=== PATIENT | female | born 1950 | race Caucasian/White ===

== ENCOUNTER 2016-12-13 10:23 | Emergency (ER) | payer OTHER ==
[2016-12-13 10:48] VITALS: BP 130/68
[2016-12-13] MEDS ORDERED: Tetan/Diph/Pertus SYR(Tdap)* 0.5 ML SYR(BOOSTRIX) use SYR IM ONE (11:07)
--- NOTE | 2016-12-13 11:15 | UC ---
General HPI - HPI Summary HPI Summary: fall and trip at the bank. she has contusions of the right right knee and right shoulder as well as right hand laceration. denies numbness. - History of Current Complaint Chief Complaint: UCUpperExtremity Stated Complaint: FALL Time Seen by Provider: 12/13/16 11:02 Hx Obtained From: Patient Onset/Duration: Sudden Onset Timing: Constant Onset Severity: Moderate Current Severity: Mild Associated Signs & Symptoms: Positive: Edema - chronic edema.. Negative: Abdominal Pain, Anticoagulation Therapy, Back Pain, Confusion, Chest Pain, Dizziness - Allergy/Home Medications Allergies/Adverse Reactions: Allergies Allergy/AdvReac Type Severity Reaction Status Date / Time Brompheniramine Allergy Vomiting Verified 06/24/16 14:02 [From Dimetapp] Phenylpropanolamine Allergy Vomiting Verified 06/24/16 14:02 [From Dimetapp] PMH/Surg Hx/FS Hx/Imm Hx Endocrine History Of: Denies: Diabetes, Thyroid Disease, Hyperthyroidism, Hypothyroidism, Dyslipidemia Cardiovascular History Of: Reports: Hypertension Denies: Cardiac Disorders, Pacemaker/ICD, Myocardial Infarction, Congestive Heart Failure, Atrial Fibrillation, Deep Vein Thrombosis, Bleeding Disorders Respiratory History Of: Denies: COPD, Asthma, Bronchitis, Pneumonia, Pulmonary Embolism GI/ History Of: Reports: Gastroesophageal Reflux Denies: Ulcer, Gastrointestinal Bleed, Gall Bladder Disease, Kidney Stones, Diverticulitis, Renal Disease, Urosepsis Neurological History Of: Denies: TIA, CVA, Dementia, Seizures, Migraine Psychological History Of: Reports: Anxiety, Depression Cancer History Of: Denies: Lung Cancer, Colorectal Cancer, Breast Cancer, Prostate Cancer, Cervical Cancer Other History Of: Negative For: HIV, Hepatitis B, Hepatitis C, Anticoagulant Therapy - Surgical History Surgical History: Yes Surgery Procedure, Year, and Place: . tonsillectomy - Family History Known Family History: Positive: Cardiac Disease, Hypertension - Social History Alcohol Use: None Substance Use Type: None Smoking Status (MU): Former Smoker Type: Cigarettes Amount Used/How Often: 4 CIGS/DAY Length of Time of Smoking/Using Tobacco: 49 YRS Have You Smoked in the Last Year: Yes When Did the Patient Quit Smoking/Using Tobacco: 7 months ago Review of Systems All Other Systems Reviewed And Are Negative: Yes Physical Exam Triage Information Reviewed: Yes Appearance: Well-Appearing, No Pain Distress, Obese Vital Signs: Initial Vital Signs Temp 99.0 F 12/13/16 10:40 Pulse 83 12/13/16 10:40 Resp 16 12/13/16 10:40 BP 130/68 12/13/16 10:40 Pulse Ox 96 12/13/16 10:40 Vital Signs Reviewed: Yes Eye Exam: Normal Eyes: Positive: Conjunctiva Clear. Negative: Conjunctiva Inflamed ENT Exam: Normal ENT: Positive: Normal ENT inspection Neck exam: Normal Neck: Positive: Supple, Nontender, No Lymphadenopathy. Negative: Nuchal Rigidity, Tenderness @ Respiratory: Positive: Chest non-tender, Lungs clear, Normal breath sounds, No respiratory distress, No accessory muscle use Cardiovascular Exam: Normal Cardiovascular: Positive: RRR, No Murmur, Pulses Normal Abdominal Exam: Normal Abdomen Description: Positive: Nontender, No Organomegaly Musculoskeletal: Positive: Other: - right shoulder diffuse tenderness but no bony tenderness. no right knee effusion, redness or bony tenderness. no c spine back tenderness. right hand laceration palmar base of the pinky. Just barely into the dermis. Neurological: Positive: Alert, Muscle Tone Normal, Fatigued. Negative: Lethargic, Unresponsive, Abnormal Muscle Tone Psychological Exam: Normal Psychological: Positive: Age Appropriate Behavior Skin Exam: Other - laceration as above. Skin: Negative: rashes Course/Dx - Course Course Of Treatment: we talked at length about wound care as the biggest complication would be infection. we talked about keeping it covered and antibiotic ointment at all times. she will return for any worsening or signs of infection. the other injuries are c/w contusion. she is able to ambulate. - Differential Dx - Multi-Symptom Provider Diagnoses: laceration. contusions Discharge - Discharge Plan Condition: Stable Disposition: HOME Prescriptions: Neomyc/Polymyx/Bacitrac OINT* [Neomycin OINT*] 1 applic TOPICAL TID #15 tube Patient Education Materials: Laceration (ED), Acute Wound Care (ED), Contusion in Adults (ED)
== END 2016-12-13 11:48 | disposition home or self-care (01) ==
LOC: UCCORT 10:23
DX: S80.01XA Contusion of right knee, initial encounter (principal); S40.011A Contusion of right shoulder, initial encounter; S61.411A Laceration without foreign body of right hand, initial encounter; W01.0XXA Fall on same level from slipping, tripping and stumbling without subsequent striking against object, initial encounter; Y93.9 Activity, unspecified; Y92.510 Bank as the place of occurrence of the external cause; Z23 Encounter for immunization; Z87.891 Personal history of nicotine dependence
CPT/HCPCS: 12001; 90471; 90715; 99212; G0463